=== PATIENT | male | born 1945 | race Caucasian/White ===

== ENCOUNTER 2021-04-23 10:17 | Emergency (ER) | payer BLACK LUNG, MEDICARE ==
[~2021-04-23 10:17] MED LIST: MECLIZINE HCL25 MG PO
[2021-04-23 11:31] LABS: HEMOGLOBIN 18.5 gm/dl (14.0-17.5); RED BLOOD COUNT 6.24 M/UL (4.20-5.50); WHITE BLOOD COUNT 10.6 K/UL (4.5-11.0)
[2021-04-23] MEDS ORDERED: ZOFRAN ODT 4 MG4 MG SL (14:18)
== END 2021-04-23 14:35 | disposition home or self-care (01) ==
LOC: ER1 10:17
PROVIDERS: Physician Assistant
DX: R10.9 Unspecified abdominal pain (principal); R11.2 Nausea with vomiting, unspecified; R19.7 Diarrhea, unspecified
CPT/HCPCS: 80053; 81001; 85025; 96374; 96375; 99284; J2270; J2405; Q9967

== ENCOUNTER 2021-04-26 01:04 | Emergency (ER) | payer BLACK LUNG, MEDICARE ==
[~2021-04-26 01:04] MED LIST changes: +ZOFRAN ODT 4 MG4 MG SL
[2021-04-26 02:24] LABS: HEMOGLOBIN 15.6 gm/dl (14.0-17.5); RED BLOOD COUNT 5.52 M/UL (4.20-5.50)
[2021-04-26 02:49] LABS: BUN/CREATININE RATIO 12 (0-10)
[2021-04-26] MEDS ORDERED: DECADRON6 MG PO (03:49)
== END 2021-04-26 03:53 | disposition home or self-care (01) ==
LOC: ER1 01:04
PROVIDERS: Family Medicine
DX: U07.1 COVID-19 (principal); D72.819 Decreased white blood cell count, unspecified; J60 Coalworker's pneumoconiosis; J44.9 Chronic obstructive pulmonary disease, unspecified
CPT/HCPCS: 36600; 71045; 80048; 82550; 82553; 82803; 83605; 83874; 83880; 84484; 85025; 86140; 93005; 94664; 96374; 99285; J1100; U0002

== ENCOUNTER → 2021-04-27 | Outpatient (CLI) | payer BLACK LUNG, MEDICARE ==
[~2021-04-27] VITALS: Ht 175.3 cm; Wt 90.7 kg
[~2021-04-27] MED LIST changes: +DECADRON6 MG PO; +DULERA 100 MCG8.8 GM INH; +STIOLTO RESPIMAT4 GM INH
== END ==
LOC: EROP 10:55
DX: U07.1 COVID-19 (principal); Z23 Encounter for immunization; J98.4 Other disorders of lung; I10 Essential (primary) hypertension
CPT/HCPCS: M0247; Q0247

== ENCOUNTER 2021-05-01 19:46 | Emergency (ER) | payer BLACK LUNG, MEDICARE ==
[~2021-05-01 19:46] MED LIST changes: -DULERA 100 MCG8.8 GM INH; -STIOLTO RESPIMAT4 GM INH
[2021-05-01 23:29] LABS: HEMOGLOBIN 15.8 gm/dl (14.0-17.5); RED BLOOD COUNT 5.5 M/UL (4.20-5.50); WHITE BLOOD COUNT 13.6 K/UL (4.5-11.0)
[2021-05-03] MEDS ORDERED: DULERA 100 MCG8.8 GM INH (12:24)
[2021-05-03] MEDS ORDERED: STIOLTO RESPIMAT4 GM INH (12:24)
== END 2021-05-02 00:41 | disposition home or self-care (01) ==
LOC: ER1 19:46
PROVIDERS: Preventive Medicine Occupational Medicine
DX: U07.1 COVID-19 (principal); J12.82 Pneumonia due to coronavirus disease 2019
CPT/HCPCS: 36600; 71045; 82550; 82553; 82803; 84484; 85025; 85652; 86140; 93005; 96374; 96375; 99285; J1100; J2405

== ENCOUNTER 2021-05-03 06:20 | Inpatient (IN) | payer BLACK LUNG, MEDICARE ==
[~2021-05-03] VITALS: Ht 175.3 cm; Wt 88.5 kg
[2021-05-03 07:51] LABS: HEMOGLOBIN 14.7 gm/dl (14.0-17.5); RED BLOOD COUNT 5.06 M/UL (4.20-5.50); WHITE BLOOD COUNT 14.2 K/UL (4.5-11.0)
[2021-05-03 08:14] LABS: BUN/CREATININE RATIO 21 (0-10)
[2021-05-03] MEDS ORDERED: STIOLTO RESPIMAT4 GM INH (12:24)
[2021-05-03] MEDS ORDERED: DULERA 100 MCG8.8 GM INH (12:24)
[2021-05-04 05:51] LABS: RED BLOOD COUNT 4.56 M/UL (4.20-5.50); WHITE BLOOD COUNT 12.1 K/UL (4.5-11.0)
[2021-05-04 06:25] LABS: BUN/CREATININE RATIO 23 (0-10)
[2021-05-05 07:47] LABS: HEMOGLOBIN 13.7 gm/dl (14.0-17.5); RED BLOOD COUNT 4.79 M/UL (4.20-5.50); WHITE BLOOD COUNT 11.7 K/UL (4.5-11.0)
[2021-05-05 08:06] LABS: BUN/CREATININE RATIO 21 (0-10)
[2021-05-05] MEDS ORDERED: DECADRON6 MG PO (10:09)
--- NOTE | 2021-05-05 18:40 | NUR ---
ROOM AIR O2 SAT 82%.
[2021-05-06 06:23] LABS: HEMOGLOBIN 13.7 gm/dl (14.0-17.5); RED BLOOD COUNT 4.86 M/UL (4.20-5.50); WHITE BLOOD COUNT 8.4 K/UL (4.5-11.0)
[2021-05-06 06:34] LABS: BUN/CREATININE RATIO 20 (0-10)
--- NOTE | 2021-05-07 02:58 | NUR ---
PATIENTS (MEG) CONTACTED ME REAGRDING HER HUSBANDS DISCHARGE. SHE WAS UPSET THAT THE DISCHARGING NURSE DID'T REVIEW THE MEDICATIONS OR THE USE OF OXYGEN WITH HER PRIOR TO DISCHARGING HER . SHE WAS CONFUSED TO EHAT MEDICATIONS HE WAS TO TAKE AT HOME AND WHERE THE PERSCRITPIONS WERE FOR VOLCANOLOGY PROFESSOR. I HAD THE WC PULL THE CHART BACK OUT AND WE FOUND THE DISCHARGE INFORMATION. I REVIEWED THE INSTRUCTIONS WITH HER ALONG WITH WHERE TO VOLCANOLOGY PROFESSOR HIS PERSCRIPTIONS AND WHAT THEY WERE. SHE WAS HAPPY WITH THE INFORMATION AND THANKED ME FOR HELPING.
== END 2021-05-06 08:44 | disposition home or self-care (01) | DRG 177 ==
LOC: ER1 06:20 → CDU 11:09 → M/S 11:09 → CDU 14:21 → M/S 14:21 → CDU 14:22 → M/S 14:22
PROVIDERS: Internal Medicine; Nurse Practitioner; ADMIT Internal Medicine
PROC: 3E0333Z Introduction of Anti-inflammatory into Peripheral Vein, Percutaneous Approach (ICD-10-PCS; principal; 2021-05-03)
PROC: 8E0ZXY6 Isolation (ICD-10-PCS; 2021-05-03)
PROC: XW033E5 Introduction of Remdesivir Anti-infective into Peripheral Vein, Percutaneous Approach, New Technology Group 5 (ICD-10-PCS; 2021-05-04)
DX: U07.1 COVID-19 (principal); J96.01 Acute respiratory failure with hypoxia; J12.82 Pneumonia due to coronavirus disease 2019; J44.0 Chronic obstructive pulmonary disease with (acute) lower respiratory infection; J60 Coalworker's pneumoconiosis; Z99.81 Dependence on supplemental oxygen; Z90.49 Acquired absence of other specified parts of digestive tract; Z84.89 Family history of other specified conditions
CPT/HCPCS: 36600; 71045; 80048; 81001; 82550; 82553; 82803; 83735; 83874; 83880; 84484; 85025; 85027; 85379; 85652; 86140; 93005; 94640; 94664; 94760; 96374; 96375; 97161; 97166; 99285; J0248; J0696; J1100; J1650; J1745; J7030; Q9967; U0002

== ENCOUNTER 2021-05-15 13:19 | Emergency (ER) | payer BLACK LUNG, MEDICARE ==
[~2021-05-15 13:19] MED LIST changes: +DULERA 100 MCG8.8 GM INH; +STIOLTO RESPIMAT4 GM INH
[2021-05-15 15:13] LABS: HEMOGLOBIN 16.4 gm/dl (14.0-17.5); RED BLOOD COUNT 5.81 M/UL (4.20-5.50)
[2021-05-15 15:32] LABS: BUN/CREATININE RATIO 19 (0-10)
[2021-05-15] MEDS ORDERED: HYDROCODONE-AC1 EACH PO (16:32)
== END 2021-05-15 17:45 | disposition home or self-care (01) ==
LOC: ER1 13:19
PROVIDERS: Emergency Medicine
DX: B37.0 Candidal stomatitis (principal); R53.83 Other fatigue; R53.1 Weakness
CPT/HCPCS: 71045; 80048; 83605; 83735; 85025; 96374; 96375; 99283; J2270; J2405

== ENCOUNTER → 2021-06-09 | Outpatient (CLI) | payer BLACK LUNG, MEDICARE ==
[~2021-06-09] MED LIST changes: +HYDROCODONE-AC1 EACH PO
== END ==
LOC: HEART 5 14:38
DX: J18.9 Pneumonia, unspecified organism (principal); U09.9 Post COVID-19 condition, unspecified; R06.02 Shortness of breath
CPT/HCPCS: 71046; 94060; 94729